=== PATIENT | female | born 1975 | race Hispanic/Latino ===

== ENCOUNTER 2023-04-06 15:13 | Emergency (ER) | payer OTHER ==
[2023-04-06 15:56] LABS: Absolute Lymphocytes (CBC) 1.9 K/uL (0.7-4.9); Lymphocytes % 17.6 % (15.3-44.8); MCV 85.4 fL (80-100); MPV 8.9 fL (7.6-11.3); RBC Red Blood Cell Count 4.91 M/uL (3.86-4.86)
--- NOTE | 2023-04-06 15:56 | RAD REPORT ---
EXAM DESCRIPTION: CT - Head Brain Wo Cont - 04/06/2023 3:52 pm CLINICAL HISTORY: HEADACHE Headache, drowsiness COMPARISON: No comparisons TECHNIQUE: All CT scans are performed using dose optimization technique as appropriate and may inclu de automated exposure control or mA/KV adjustment according to patient size. FINDINGS: No intracranial hemorrhage, hydrocephalus or extra-axial fluid collection.No areas of brai n edema or evidence of midline shift. The paranasal sinuses and mastoids are clear. The calvarium is intact. IMPRESSION: No acute intracranial abnormality.
[2023-04-06] MEDS ORDERED: NA CHLORIDE 0.9% 500 ML ONE (16:00)
[2023-04-06 16:20] LABS: Albumin 4.5 g/dL (3.4-5.0); Bilirubin Total 0.5 mg/dL (0.2-1.0); Potassium 3.5 mEq/L (3.5-5.1); Protein, Total 8.5 g/dL (6.4-8.2)
--- NOTE | 2023-04-06 16:30 | ER ---
Nurse's Notes [facility] Name: Sirisha Carroll Age: 48 yrs Sex: Female : 1975 Arrival Date: 04/06/2023 Time: 15:13 Bed 6 Private MD: Diagnosis: Headache, possible migraine Presentation: 04/06 15:20 Chief complaint: Patient states: "around 11am I started having a halo to my vision and aa5 started having a headache to the right side of my head". Pt reports nausea and tingling to giovanna hands. Onset of symptoms was March 2023. 15:20 Acuity: HA 3 aa5 15:20 Method Of Arrival: Ambulatory aa5 15:20 Coronavirus screen: nausea. Ebola Screen: Patient denies travel to an Ebola-affected [facility] area in the 21 days before illness onset. Initial Sepsis Screen: Does the patient meet any 2 criteria? No. Patient's initial sepsis screen is negative. Does the patient have a suspected source of infection? No. Patient's initial sepsis screen is negative. Risk Assessment: Do you want to hurt yourself or someone else? 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 - Social history:: Smoking status: Patient denies any tobacco usage or history of. Screenin:12 [facility] ED Fall Risk Assessment (Adult) History of falling in the last 3 months, db including since admission No falls in past 3 months (0 pts) Confusion or Disorientation No (0 pts) Intoxicated or Sedated No (0 pts) Impaired Gait No (0 pts) Mobility Assist Device Used No (0 pt) Altered Elimination No (0 pt) Score/Fall Risk Level 0 - 2 = Low Risk Oriented to surroundings, Maintained a safe environment. Abuse screen: Denies threats or abuse. Denies injuries from another. Nutritional screening: No deficits noted. Tuberculosis screening: No symptoms or risk factors identified. Assessment: 15:45 Reassessment: Patient appears in no apparent distress at this time. Patient and/or db family updated on plan of care and expected duration. Pain level reassessed. Patient is alert, oriented x 3, equal unlabored respirations, skin warm/dry/pink. General: Appears in no apparent distress. comfortable, Behavior is calm, cooperative. Pain: Complains of pain in head. 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 Speech is normal, Facial symmetry appears normal, Reports TINGLING IN BILATERAL HANDS. Respiratory: Airway is patent Respiratory effort is even, unlabored, Respiratory pattern is regular, symmetrical. Vital Signs: 15:20 BP 132 / 82; Pulse 85; Resp 16 S; Temp 97.2(TE); Pulse Ox 100% on R/A; Weight 72.57 kg aa5 (R); Height 5 ft. 6 in. (R); 16:00 BP 117 / 81; Pulse 81; Resp 16; Pulse Ox 98% on R/A; db 15:20 Body Mass Index 25.82 (72.57 kg, 167.64 cm) aa5 ED Course: 15:14 Patient arrived in ED. am2 15:20 Arm band placed on. aa5 15:21 Triage completed. aa5 15:22 Scooby Bran MD is Attending Physician. sp3 15:42 Carol Blum, VICTOR HUGO is Primary Nurse. db 15:45 Inserted saline lock: 20 gauge in left antecubital area, using aseptic technique. Blood db collected. 15:53 CT Head Brain wo Cont In Process Unspecified. EDMS 16:12 Patient has correct armband on for positive identification. Call light in reach. Side db rails up X 1. 16:30 Oscar Jo MD is Referral Physician. sp3 16:41 Provided Education on: NA. ko1 16:41 No provider procedures requiring assistance completed. IV discontinued, intact, ko1 bleeding controlled, No redness/swelling at site. Pressure dressing applied. 16:42 IV discontinued, intact, bleeding controlled, No redness/swelling at site. Pressure sm8 dressing applied. Administered Medications: 15:45 Drug: NS 0.9% IV 500 ml Route: IV; Rate: bolus; Site: left antecubital; db 16:33 Not Given (Patient Refused): Promethazine IVP 12.5 mg IVP once db 16:33 Not Given (Patient Refused): morphine IVP or IV 4 mg IVP once over 4 mins db Medication: 16:41 VIS not applicable for this client. ko1 Outcome: 16:30 Discharge ordered by . sp3 16:41 Discharged to home ambulatory, with family. ko1 16:41 Condition: stable 16:41 Discharge instructions given to patient, family, Instructed on discharge instructions, follow up and referral plans. Demonstrated understanding of instructions, follow-up care. 16:42 Patient left the ED. ko1 Signatures: Dispatcher [employer] EDMS Meredith Lopez, RN RN aa5 Gladys Jain Setul, MD MD sp3 Rosemarie Paul RN RN ko1 Carol Blum RN RN db Antonina Bach 8
--- NOTE | 2023-04-06 16:30 | EDPHYS ---
Physician Documentation [facility] Name: Sirisha Carroll Age: 48 yrs Sex: Female : 1975 Arrival Date: 04/06/2023 Time: 15:13 Bed 6 Private MD: ED Physician Scooby Bran HPI: 04/06 16:01 This 48 yrs old Female presents to ER via Ambulatory with complaints of sp3 Headache, Nausea, Numbness Of Hand - tingling. 16:01 48-year-old female with history of hypothyroidism no chronic headaches now presents to 3 the ED with chief complaint headache that lasted for 3 to 4 hours that was gradual in onset. Patient denies thunderclap incident. Pain is described as diffuse along with a now resolved partial blurry vision unilaterally in the right eye. Patient denies any prior eye pathology or corrective glasses. Patient also denies neck pain, changes in other vision, current blurry vision, other focal neurodeficit. She did have tingliness in her hands which have also resolved. She denies trauma, facial pain, neck pain, chest pain, shortness of breath, abdominal pain, nausea, vomiting, diarrhea, fever, known sick contacts, travel history, or any other signs or symptoms on ROS at this time.. 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 - Social history:: Smoking status: Patient denies any tobacco usage or history of. ROS: 16:02 Constitutional: Negative for fever, chills, and weight loss, Eyes: Negative for injury, sp3 pain, redness, and discharge, ENT: Negative for injury, pain, and discharge, Neck: Negative for injury, pain, and swelling, Cardiovascular: Negative for chest pain, palpitations, and edema, Respiratory: Negative for shortness of breath, cough, wheezing, and pleuritic chest pain, Abdomen/GI: Negative for abdominal pain, nausea, vomiting, diarrhea, and constipation, Back: Negative for injury and pain, MS/Extremity: Negative for injury and deformity, Skin: Negative for injury, rash, and discoloration, Psych: Negative for depression, anxiety, suicide ideation, homicidal ideation, and hallucinations, Allergy/Immunology: Negative for hives, rash, and allergies, Endocrine: Negative for neck swelling, polydipsia, polyuria, polyphagia, and marked weight changes. 16:02 All other systems are negative. Exam: 16:02 Constitutional: This is a well developed, well nourished patient who is awake, alert, sp3 and in no acute distress. Head/Face: Normocephalic, atraumatic. Eyes: Pupils equal round and reactive to light, extra-ocular motions intact. Lids and lashes normal. Conjunctiva and sclera are non-icteric and not injected. Cornea within normal limits. Periorbital areas with no swelling, redness, or edema. ENT: Nares patent. No nasal discharge, no septal abnormalities noted. External auditory canals are clear. Oropharynx with no redness, swelling, or masses, exudates, or evidence of obstruction, uvula midline. Mucous membranes moist. Neck: Trachea midline, no thyromegaly or masses palpated, and no cervical lymphadenopathy. Supple, full range of motion without nuchal rigidity, or vertebral point tenderness. No Meningismus. Chest/axilla: Normal chest wall appearance and motion. Nontender with no deformity. No lesions are appreciated. Cardiovascular: Regular rate and rhythm with a normal S1 and S2. No gallops, murmurs, or rubs. Normal PMI, no JVD. No pulse deficits. Respiratory: Lungs have equal breath sounds bilaterally, clear to auscultation and percussion. No rales, rhonchi or wheezes noted. No increased work of breathing, no retractions or nasal flaring. Abdomen/GI: Soft, non-tender, with normal bowel sounds. No distension or tympany. No guarding or rebound. No evidence of tenderness throughout. Back: No spinal tenderness. No costovertebral tenderness. Full range of motion. Skin: Warm, dry with normal turgor. Normal color with no rashes, no lesions, and no evidence of cellulitis. MS/ Extremity: Pulses equal, no cyanosis. Neurovascular intact. Full, normal range of motion. Neuro: Awake and alert, GCS 15, oriented to person, place, time, and situation. Cranial nerves II-XII grossly intact. Motor strength 5/5 in all extremities. Sensory grossly intact. Cerebellar exam normal. Normal gait. Psych: Awake, alert, with orientation to person, place and time. Behavior, mood, and affect are within normal limits. Vital Signs: 15:20 BP 132 / 82; Pulse 85; Resp 16 S; Temp 97.2(TE); Pulse Ox 100% on R/A; Weight 72.57 kg aa5 (R); Height 5 ft. 6 in. (R); 16:00 BP 117 / 81; Pulse 81; Resp 16; Pulse Ox 98% on R/A; db 15:20 Body Mass Index 25.82 (72.57 kg, 167.64 cm) aa5 MDM: 15:26 Patient medically screened. sp3 16:03 Data reviewed: vital signs, nurses notes, lab test result(s), radiologic studies. ED sp3 course: 48-year-old female with headache consistent with migraine. Patient has no history of migraine headaches in the past. I am not highly suspicious for intracranial hemorrhage, subarachnoid hemorrhage, infectious etiology including meningitis, trauma, glaucoma, or any other critical pathology at this time. Will obtain CT scan of the head since patient has not had prior imaging, routine labs and administer Phenergan and morphine. Patient's headache was down to a 5/10 prior to arrival after taking OTC ibuprofen. Patient will likely be discharged if her symptoms are improved and work-up is negative. We will schedule her outpatient follow-up with neurology.. 16:28 ED course: Patient symptoms have not resolved in terms of headache. She still states sp3 she has mild tingling in her hands bilaterally which do not follow any peripheral nerve or dermatome pattern. Again pain is completely resolved. CT scan is negative and laboratory values are all within normal limits. We will safely discharge patient home with follow-up to Dr. Jo and I have told patient that if her headache returns or she has any other symptoms including chest pain or back pain or neck pain, please return immediately. She acknowledges and is grateful for her care.. 04/06 15:34 Order name: CBC with Diff; Complete Time: 16:17 sp3 04/06 15:34 Order name: CMP; Complete Time: 16:24 sp3 04/06 15:34 Order name: CT Head Brain wo Cont; Complete Time: 16:17 sp3 04/06 15:34 Order name: IV Saline Lock; Complete Time: 16:37 sp3 Administered Medications: 15:45 Drug: NS 0.9% IV 500 ml Route: IV; Rate: bolus; Site: left antecubital; db 16:33 Not Given (Patient Refused): Promethazine IVP 12.5 mg IVP once db 16:33 Not Given (Patient Refused): morphine IVP or IV 4 mg IVP once over 4 mins db Disposition Summary: 04/06/23 16:30 Discharge Ordered Location: Home sp3 Condition: Stable sp3 Diagnosis - Headache, possible migraine sp3 Followup: sp3 - With: Oscar Jo MD - When: Upon discharge from the Emergency Department - Reason: Recheck today's complaints Discharge Instructions: - Discharge Summary Sheet sp3 - General Headache Without Cause sp3 Forms: - Medication Reconciliation Form sp3 - Thank You Letter sp3 - Antibiotic Education sp3 - Prescription Opioid Use sp3 - Patient Portal Instructions sp3 Signatures: Dispatcher [employer] Meredith Gomes RN RN aa5 Scooby Bran MD MD sp3 Carol Blum RN RN db
[2023-04-06 17:16] VITALS: TEMP 97.2
[2023-04-06 17:18] VITALS: BP 117/81; O2SAT 98
== END 2023-04-06 16:42 | disposition home or self-care (01) ==
LOC: ER 15:13
DX: R51.9 Headache, unspecified (principal); E03.9 Hypothyroidism, unspecified
CPT/HCPCS: 85025; 36415; 80053; 70450; J7040; 99284